=== PATIENT | male | born 1980 | race Caucasian/White ===

== ENCOUNTER 2017-03-09 12:07 | Inpatient (IN) | payer OTHER ==
[~2017-03-09] VITALS: Ht 195.6 cm; Wt 67.5 kg
[2017-03-09 12:15] VITALS: BP 150/97; PULSE 110; RESP 16; TEMP 97.8; O2SAT 97
[2017-03-09 12:36] LABS: AUTOMATED NEUTROPHIL # 5.7 TH/MM3 (1.8-7.7); BASOPHIL % 0.5 % (0.0-2.0); EOSINOPHIL # 0.1 TH/MM3 (0-0.4); HEMATOCRIT 44.3 % (39.0-51.0); HEMO FLAGS DIFF FINAL; LYMPH % 21.1 % (9.0-44.0); LYMPHOCYTE # 1.7 TH/MM3 (1.0-4.8); MEAN CELL VOLUME 91.1 FL (80.0-100.0); MEAN CORPUSCULAR HEMOGLOBIN 31.4 PG (27.0-34.0); MEAN CORPUSCULAR HGB CONC 34.4 % (32.0-36.0); MONO % 6.9 % (0.0-8.0); NEUT % 70.5 % (16.0-70.0); PLATELET COUNT 245 TH/MM3 (150-450); RED BLOOD COUNT 4.87 MIL/MM3 (4.50-5.90); RED CELL DISTRIBUTION WIDTH 12.5 % (11.6-17.2); WHITE BLOOD COUNT 8.1 TH/MM3 (4.0-11.0)
[2017-03-09 12:57] LABS: ALT (GPT) 45 U/L (12-78); ANION GAP 8 MEQ/L (5-15); AST (GOT) 19 U/L (15-37); BICARBONATE 26.3 MEQ/L (21.0-32.0); BLOOD UREA NITROGEN 14 MG/DL (7-18); CHLORIDE 104 MEQ/L (98-107); GLOMERULAR FILTRATION RATE 76 ML/MIN (>89); POTASSIUM 4.2 MEQ/L (3.5-5.1); SODIUM (NA) 138 MEQ/L (136-145)
[2017-03-09 12:59] LABS: ALKALINE PHOSPHATASE 72 U/L (45-117); TOTAL BILIRUBIN ADULT 0.4 MG/DL (0.2-1.0)
--- NOTE | 2017-03-09 13:54 | PD ---
HPI Chief Complaint: Psychiatric Symptoms Time Seen by Provider: 13:34 Travel History International Travel<30 days: No Contact w/Intl Traveler<30days: No Traveled to known affect area: No History of Present Illness HPI 36-year-old male that presents to the ED for evaluation of psychiatric illness. Patient was [place] acted by police after apparently he got in argument with his and he states that he wanted to end his life and the police was called and he was Georges acted for his unsafety. He denies any suicidal ideation to me. Per patient he said this mainly because of the argument that was transpiring. Per patient he has 2 kids and he has no desire to end his life. Per patient he has a history of hypertension takes lisinopril for it. He also takes Wellbutrin for depression. He denies ever being Georges acted before. He does drink on occasion. He denies any fevers chills or sweats. Denies any cuts. Denies any homicidal ideation. No substance abuse other than occasional alcohol. Denies hearing voices. No previous suicidal attempts per patient. Allergy to penicillin. [facility] Past Medical History Depression: Yes Hypertension: Yes Past Surgical History Ear Surgery: Yes (TUBES) Social History Alcohol Use: Yes (OCCASIONAL) Tobacco Use: No Substance Use: No Allergies-Medications (Allergen,Severity, Reaction): Coded Allergies: Penicillins (Verified Allergy, Unknown, 03/09/17) Review of Systems Except as stated in HPI: all other systems reviewed are Neg Physical Exam Narrative GENERAL: SKIN: Warm and dry. HEAD: Atraumatic. Normocephalic. EYES: Pupils equal and round 4 mm reactive to light and accommodation. No scleral icterus. No injection or drainage. ENT: No nasal bleeding or discharge. Mucous membranes pink and moist. Tongue is midline. No uvula deviation. NECK: Trachea midline. No JVD. CARDIOVASCULAR: Regular rate and rhythm. No murmurs, S3, S4. RESPIRATORY: No accessory muscle use. Clear to auscultation. Breath sounds equal bilaterally. GASTROINTESTINAL: Abdomen soft, non-tender, nondistended. Hepatic and splenic margins not palpable. MUSCULOSKELETAL: Extremities without clubbing, cyanosis, or edema. No obvious deformities. Full range of motion of the upper and lower extremities bilaterally. 2+ pulses bilaterally. NEUROLOGICAL: Awake and alert. No obvious cranial nerve deficits. Motor grossly within normal limits. Five out of 5 muscle strength in the arms and legs. Normal speech. PSYCHIATRIC: Appropriate mood and affect; insight and judgment normal. Data Data Last Documented VS Vital Signs Date Time Temp Pulse Resp B/P (MAP) Pulse Ox O2 Delivery O2 Flow Rate FiO2 03/09/17 12:15 97.8 110 16 150/97 (114) 97 Orders Orders Complete Blood Count With Diff (03/09/17 12:22) Comprehensive Metabolic Panel (03/09/17 12:22) Psych Screen (03/09/17 12:22) Diet Regular Basic (03/09/17 Lunch) Drug Screen, Random Urine (03/09/17 12:22) Labs Laboratory Tests Test 03/09/17 12:26 03/09/17 12:48 White Blood Count 8.1 TH/MM3 Red Blood Count 4.87 MIL/MM3 Hemoglobin 15.3 GM/DL Hematocrit 44.3 % Mean Corpuscular Volume 91.1 FL Mean Corpuscular Hemoglobin 31.4 PG Mean Corpuscular Hemoglobin Concent 34.4 % Red Cell Distribution Width 12.5 % Platelet Count 245 TH/MM3 Mean Platelet Volume 8.0 FL Neutrophils (%) (Auto) 70.5 % Lymphocytes (%) (Auto) 21.1 % Monocytes (%) (Auto) 6.9 % Eosinophils (%) (Auto) 1.0 % Basophils (%) (Auto) 0.5 % Neutrophils # (Auto) 5.7 TH/MM3 Lymphocytes # (Auto) 1.7 TH/MM3 Monocytes # (Auto) 0.6 TH/MM3 Eosinophils # (Auto) 0.1 TH/MM3 Basophils # (Auto) 0.0 TH/MM3 CBC Comment DIFF FINAL Differential Comment Blood Urea Nitrogen 14 MG/DL Creatinine 1.10 MG/DL Random Glucose 108 MG/DL Total Protein 8.3 GM/DL Albumin 4.4 GM/DL Calcium Level 8.7 MG/DL Alkaline Phosphatase 72 U/L Aspartate Amino Transf (AST/SGOT) 19 U/L Alanine Aminotransferase (ALT/SGPT) 45 U/L Total Bilirubin 0.4 MG/DL Sodium Level 138 MEQ/L Potassium Level 4.2 MEQ/L Chloride Level 104 MEQ/L Carbon Dioxide Level 26.3 MEQ/L Anion Gap 8 MEQ/L Estimat Glomerular Filtration Rate 76 ML/MIN Urine Opiates Screen NEG Urine Barbiturates Screen NEG Urine Amphetamines Screen NEG Urine Benzodiazepines Screen NEG Urine Cocaine Screen NEG Urine Cannabinoids Screen NEG MDM Medical Decision Making Medical Screen Exam Complete: Yes Emergency Medical Condition: Yes Medical Record Reviewed: Yes Interpretation(s) CBC & BMP Diagram 03/09/17 12:26 Total Protein 8.3 H, Albumin 4.4, Calcium Level 8.7, Alkaline Phosphatase 72, Aspartate Amino Transf (AST/SGOT) 19, Alanine Aminotransferase (ALT/SGPT) 45, Total Bilirubin 0.4 tox negative Differential Diagnosis Depression versus suicidal ideation versus anxiety versus adjustment disorder versus mood disorder versus bipolar disorder versus schizophrenia versus paranoid disorder versus psychosis versus substance abuse versus alcohol abuse versus alcohol induced psychosis versus homicidality addition versus cutting versus personality disorder Narrative Course 36-year-old male that presents to the ED for evaluation of what appears to be psych eval. Patient was properly examined the has no medical complaints. Labs were drawn. Patient will be medically clear. Okay to be seen by psych. Mental health screening was discussed with the patient. Diagnosis Primary Impression: Suicidal ideation Admitting Information Admitting Physician Requests: Observation Timi Lopez Mar 09, 2017 13:53
[2017-03-09 15:51] VITALS: BP 128/75; PULSE 70; RESP 16; TEMP 98.1; O2SAT 100
[2017-03-09] MEDS ORDERED: BUPR150XL PO (19:53)
[2017-03-09] MEDS ORDERED: LISI-515 PO (19:53)
[2017-03-09 20:18] VITALS: BP 136/74; PULSE 72; RESP 18
[2017-03-09] MEDS ORDERED: ACETAMINOPHEN 325 MG TAB PO PRN (22:00)
[2017-03-09] MEDS ORDERED: diphenhydrAMINE HCL 50 MG CAP - HS PRN PO (22:00)
[2017-03-09] MEDS ORDERED: ALUMINUM/MAGNESIUM/SIMETH 30 ML CUP PO PRN (22:00)
[2017-03-09] MEDS ORDERED: hydrOXYzine HCL 50 MG TAB PO PRN (22:00)
[2017-03-09] MEDS ORDERED: MAGNESIUM HYDROXIDE SUSP 30 ML CUP PO PRN (22:00)
[2017-03-09] MEDS ORDERED: diphenhydrAMINE HCL 50 MG/ML VIAL - HS PRN IM (22:00)
[2017-03-10 06:39] VITALS: BP 121/87; PULSE 67; RESP 20; TEMP 98.3
[2017-03-10] MEDS ORDERED: LISINOPRIL 20 MG TAB PO SCH (09:00)
[2017-03-10] MEDS ORDERED: buPROPion HCL 150 MG SUSTAINED RELEASE TAB PO SCH (09:00)
[2017-03-10 10:26] LABS: ANION GAP 9 MEQ/L (5-15); BICARBONATE 25.9 MEQ/L (21.0-32.0); BLOOD UREA NITROGEN 12 MG/DL (7-18); CHLORIDE 104 MEQ/L (98-107); GLOMERULAR FILTRATION RATE 87 ML/MIN (>89); SODIUM (NA) 139 MEQ/L (136-145)
[2017-03-10 10:30] LABS: HDL CHOLESTEROL 41.8 MG/DL (40.0-60.0); LDL CHOLESTEROL 124 MG/DL (0-99)
--- NOTE | 2017-03-10 11:35 | HHI.HP ---
Provisional Diagnosis Admission Date Mar 09, 2017 at 21:33 Sat[place] I. Adjustment disorder with mixed disturbances of emotion and conduct f 43.25 Certification of Person's Competence To Provide Express and Informed Consent I have personally examined Naeem Carbajal , a person being served at [facility] on, Mar 10, 2017 11:23. Express and informed consent means consent voluntarily given in writing, by a competent person, after sufficient explanation and disclosure of the subject matter involved to enable the person to make a knowing and willful decision without any element of force, fraud, deceit, duress, or other form of constraint or coercion. This person is 18 years of age or older, is not now known to be incompetent to consent to treatment with a guardian advocate, and does not have a health care surrogate or proxy currently making medical treatment decisions. I have found this person to be one of the following: [xxx Competent to provide express and informed consent, as defined above, for voluntary admission to this facility and is competent to provide express and informed consent for treatment. He/she has the consistent capacity to make well reasoned, willful, and knowing decisions concerning his or her medical or mental health treatment. The person fully and consistently understands the purpose of the admission for examination/placement and is fully capable of personally exercising all rights assured under [place] [] Incompetent to provide express and informed consent to voluntary admission, and this is incompetent to provide express and informed consent to treatment. The person must be transferred to involuntary status and a petition for a guardian advocate filed with the Circuit Court. [] Refusing to provide express and informed consent to voluntary admission but is competent to provide express and informed consent for treatment. The person must be discharged or transferred to involuntary status. Form shall be completed within 24 hours of a person's arrival at the receiving facility and filed in the clinical record of each person: 1. Admitted on a voluntary basis 2. Permitted to provide express and informed consent to his/her own treatment 3. Allowed to transfer from involuntary to voluntary status 4. Prior to permitting a person to consent to his or her own treatment after having been previously found incompetent to consent to treatment. History of Present Illness Capacity: Has Capacity HPI Patient is a 36-year-old white male who comes here under Georges act by the [place] [employer] dated 10-17 at 11:05 AM that document reviewed. Essentially states suicidal thoughts of killing himself with a firearm, history of depression currently prescribed Wellbutrin. Patient seen screened in the ED urine toxicology negative. At the present time patient sitting quietly in his room also present were nurse Stephanie and counselor Alivia. She is alert oriented calm and cooperative stating he has been under stress with relationship with his for the past week or so since they went with her sister and [id number] to [employer] in [place]. He states his got intoxicated to the point where she passed out was seen by the [place] staff and transported to a local emergency department where she was treated for the intoxication and then released. This is been somewhat of a contentious issue between them since then. Is also cause some problems earlier related to the use of alcohol. They've been for number of years have 6-year-old boy 8-year-old daughter. Patient works full-time. Patient states has had a prior contact with psychiatric services number of years ago when multiple family members close proximity to each other. He denies inpatient psychiatric stay. He denies any legal issues with drinking except he did get stopped after wetting a number of years ago though no DUI was discharged. He now denies suicidality homicidality voices or visions. Stated he related to her statement. Is able to contract was to do no harm. He has seen a counselor in the past continues a relationship that person wants to start counseling again with the intent of having a developmental marital counseling session. Patient denies any prior physical and or sexual abuse. Denies mental health issues in the family. Jose De Jesus Bunch has talked to patient's she feels safe with coming all has no fear of him doing something dangerous. They're firearm subtemporal away and locked. Patient had been on Wellbutrin in the past with some good results his been restarted on his by his PCP. At this time patient does not meet criteria for inpatient psychiatric hospitalization of the Georges act. Will lift Georges act allow patient to be discharged to himself. With Rx 1 month the schedule meds. He to make an appointment with his therapist. And then the follow-up appointment with a psychiatrist of their choice strong recommendation absolute sobriety. Review of Systems Constitutional: DENIES: Diaphoretic episodes, Fatigue, Fever, Weight gain, Weight loss, Chills, Dizziness, Change in appetite, Night Sweats Endocrine: DENIES: Heat/cold intolerance, Polydipsia, Polyuria, Polyphagia Eyes: DENIES: Blurred vision, Diplopia, Eye inflammation, Eye pain, Vision loss , Photosensitivity, Double Vision Ears, nose, mouth, throat: DENIES: Tinnitus, Hearing loss, Vertigo, Nasal discharge, Oral lesions, Throat pain, Hoarseness, Ear Pain, Running Nose, Epistaxis, Sinus Pain, Toothache, Odynophagia Respiratory: DENIES: Apneas, Cough, Snoring, Wheezing, Hemoptysis, Sputum production, Shortness of breath Cardiovascular: DENIES: Chest pain, Palpitations, Syncope, Dyspnea on Exertion , PND, Lower Extremity Edema, Orthopnea, Claudication Gastrointestinal: DENIES: Abdominal pain, Black stools, Bloody stools, Constipation, Diarrhea, Nausea, Vomiting, Difficulty Swallowing, Anorexia Genitourinary: DENIES: Sexual dysfunction, Urinary frequency, Urinary incontinence, Urgency, Hematuria, Dysuria, Nocturia, Penile Discharge, Testicular Pain, Testicular Swelling Musculoskeletal: DENIES: Joint pain, Muscle aches, Stiffness, Joint Swelling, Back pain, Neck pain Integumentary: DENIES: Abnormal pigmentation, Nail changes, Pruritus, Rash Hematologic/lymphatic: DENIES: Bruising, Lymphadenopathy Immunologic/allergic: DENIES: Eczema, Urticaria Neurologic: DENIES: Abnormal gait, Headache, Localized weakness, Paresthesias, Seizures, Speech Problems, Tremor, Poor Balance Psychiatric: DENIES: Anxiety, Confusion, Mood changes, Depression, Hallucinations, Agitation, Suicidal Ideation, Homicidal Ideation, Delusions Past Psych History Psychological trauma history Denies Violence risk - others (6 mos) Low Violence risk - self (6 mos) Denies suicidality at this time Substance Abuse History Drugs/Alcohol past 12 months Patient states occasional alcohol use denies other drug use Past Family Social History Coded Allergies: Penicillins (Verified Allergy, Unknown, 03/09/17) Past Medical History Patient medically cleared ED Reported Medications Bupropion HCl ER 24 HR (Wellbutrin Xl 24 HR) 150 Mg Tab, 150 MG PO DAILY for Control Depression, TAB 0 Refills 03/09/17 Lisinopril (Lisinopril) 20 Mg Tab, 20 MG PO DAILY, #30 TAB 0 Refills 03/09/17 Current Medications Medications (Trade) Dose Ordered Sig/Tyler Route Start Time Stop Time Status Last Admin (Atarax) 50 mg Q6H PRN PO 03/09/17 22:00 (Benadryl) 50 mg HS PRN PO 03/09/17 22:00 (Benadryl Inj) 50 mg HS PRN IM 03/09/17 22:00 (Tylenol) 650 mg Q4H PRN PO 03/09/17 22:00 (Milk Of Magnesia Liq) 30 ml DAILY PRN PO 03/09/17 22:00 (Mag-Al Plus Susp Liq) 30 ml Q6H PRN PO 03/09/17 22:00 (Prinivil) 20 mg DAILY PO 03/10/17 09:00 03/10/17 09:19 (Wellbutrin Sr) 150 mg DAILY PO 03/10/17 09:00 03/10/17 09:19 Family History Patient denies mental health history and family Social History Patient was his and 2 young children Patient's Strengths (min. 2) Patient verbal labile axis health care is cooperative Physical Exam Patient seen screened in ED exam reveals and agreed with. At the present time patient sitting quietly in his room he is in no apparent distress, he is in no respiratory distress, no complaints of abdominal pain. Patient moving all 4 extremities of difficulty ambulating without difficulty Vital Signs Vital Signs Date Time Temp Pulse Resp B/P (MAP) Pulse Ox O2 Delivery O2 Flow Rate FiO2 03/10/17 06:39 98.3 67 20 121/87 (98) 03/09/17 15:51 100 Room Air I/O 03/10/17 03/10/17 03/11/17 08:00 16:00 00:00 Intake Total 0 ml Balance 0 ml Lab Results Test 03/09/17 12:26 03/09/17 12:48 03/10/17 09:18 White Blood Count 8.1 TH/MM3 Red Blood Count 4.87 MIL/MM3 Hemoglobin 15.3 GM/DL Hematocrit 44.3 % Mean Corpuscular Volume 91.1 FL Mean Corpuscular Hemoglobin 31.4 PG Mean Corpuscular Hemoglobin Concent 34.4 % Red Cell Distribution Width 12.5 % Platelet Count 245 TH/MM3 Mean Platelet Volume 8.0 FL Neutrophils (%) (Auto) 70.5 % Lymphocytes (%) (Auto) 21.1 % Monocytes (%) (Auto) 6.9 % Eosinophils (%) (Auto) 1.0 % Basophils (%) (Auto) 0.5 % Neutrophils # (Auto) 5.7 TH/MM3 Lymphocytes # (Auto) 1.7 TH/MM3 Monocytes # (Auto) 0.6 TH/MM3 Eosinophils # (Auto) 0.1 TH/MM3 Basophils # (Auto) 0.0 TH/MM3 CBC Comment DIFF FINAL Differential Comment Blood Urea Nitrogen 14 MG/DL 12 MG/DL Creatinine 1.10 MG/DL 0.98 MG/DL Random Glucose 108 MG/DL 94 MG/DL Total Protein 8.3 GM/DL Albumin 4.4 GM/DL Calcium Level 8.7 MG/DL 9.1 MG/DL Alkaline Phosphatase 72 U/L Aspartate Amino Transf (AST/SGOT) 19 U/L Alanine Aminotransferase (ALT/SGPT) 45 U/L Total Bilirubin 0.4 MG/DL Sodium Level 138 MEQ/L 139 MEQ/L Potassium Level 4.2 MEQ/L 4.0 MEQ/L Chloride Level 104 MEQ/L 104 MEQ/L Carbon Dioxide Level 26.3 MEQ/L 25.9 MEQ/L Anion Gap 8 MEQ/L 9 MEQ/L Estimat Glomerular Filtration Rate 76 ML/MIN 87 ML/MIN Urine Opiates Screen NEG Urine Barbiturates Screen NEG Urine Amphetamines Screen NEG Urine Benzodiazepines Screen NEG Urine Cocaine Screen NEG Urine Cannabinoids Screen NEG Triglycerides Level 134 MG/DL Cholesterol Level 193 MG/DL LDL Cholesterol 124 MG/DL HDL Cholesterol 41.8 MG/DL Cholesterol/HDL Ratio 4.61 RATIO Mental Status Examination Alert oriented calm muscular white male appears stated age calm cooperative with me with good eye contact Appearance Clean and neat Speech: Unremarkable, Pressured Orientation: x3 Memory: Unremarkable Thought Process: Logical, Organized Thought Content: Unremarkable Language Fair Fund of Knowledge Fair Hallucination Type: None Attention and Concentration: Good Suicidal Ideation: No (patient denies, able contracted to no harm, the made vague statements to ) Previous Suicide Attempts: No Homicidal Ideation: No Previous Homicide Attempts: No Insight: Fair Judgment: Poor Affect: Other (good range and intensity) Mood: Euthymic (mildly dysphoric) Motor Activity: Normal gait Assessment & Plan Problem List: (1) Adjustment disorder with mixed disturbance of emotions and conduct ICD Codes: F43.25 - Adjustment disorder with mixed disturbance of emotions and conduct Assessment & Plan Estimated LOS: days patient remains mildly depressed though denies suicidality homicidality voices or visions. Is able to contracted to no harm. At this time patient does not meet Georges criteria will lift Georges act patient to be discharged from self with Rx of lisinopril and Wellbutrin 1 month to follow-up with his personal therapist and to arrange for psychiatric follow-up Discharge Planning Patient to be discharge follow-up outpatient Request HC Surrog/Guard Advoc?: No Andrés Espinosa MD Mar 10, 2017 11:35
[2017-03-10] MEDS ORDERED: BUPR150CR PO (11:38)
[2017-03-10] MEDS ORDERED: LISI-515 PO (11:38)
--- NOTE | 2017-03-10 11:42 | HHI.DS ---
Psychiatry Discharge Summary Inpatient Psychiatric care?: Yes Advance Directive: Yes Mental Health AdvanceDirective: No Health Care Proxy: No Admission Admission Date Mar 09, 2017 at 21:33 Admission Diagnosis: (1) Adjustment disorder with mixed disturbance of emotions and conduct ICD Code: F43.25 - Adjustment disorder with mixed disturbance of emotions and conduct Brief History Patient is a 36-year-old white male who comes here under Georges act by the [place] [employer] dated 03-24 at 11:05 AM that document reviewed. Essentially states suicidal thoughts of killing himself with a firearm, history of depression currently prescribed Wellbutrin. Patient seen screened in the ED urine toxicology negative. At the present time patient sitting quietly in his room also present were nurse Stephanie and counselor Alivia. She is alert oriented calm and cooperative stating he has been under stress with relationship with his for the past week or so since they went with her sister and [id number] to [employer] in [place]. He states his got intoxicated to the point where she passed out was seen by the [place] staff and transported to a local emergency department where she was treated for the intoxication and then released. This is been somewhat of a contentious issue between them since then. Is also cause some problems earlier related to the use of alcohol. They've been for number of years have 6-year-old boy 8-year-old daughter. Patient works full-time. Patient states has had a prior contact with psychiatric services number of years ago when multiple family members close proximity to each other. He denies inpatient psychiatric stay. He denies any legal issues with drinking except he did get stopped after wetting a number of years ago though no DUI was discharged. He now denies suicidality homicidality voices or visions. Stated he related to her statement. Is able to contract was to do no harm. He has seen a counselor in the past continues a relationship that person wants to start counseling again with the intent of having a developmental marital counseling session. Patient denies any prior physical and or sexual abuse. Denies mental health issues in the family. Jose De Jesus Bunch has talked to patient's she feels safe with coming all has no fear of him doing something dangerous. They're firearm subtemporal away and locked. Patient had been on Wellbutrin in the past with some good results his been restarted on his by his PCP. At this time patient does not meet criteria for inpatient psychiatric hospitalization of the Georges act. Will lift Georges act allow patient to be discharged to himself. With Rx 1 month the schedule meds. He to make an appointment with his therapist. And then the follow-up appointment with a psychiatrist of their choice strong recommendation absolute sobriety. Tobacco Use In Past 30 Days: No Tobacco Past 30 Days Alcohol Use: Monthly or Less Hospital Course Please see above note dictated under brief history. Patient does not meet criteria for inpatient psychiatric hospitalization at this time. A new his schedule medications of Wellbutrin and lisinopril. Patient to follow-up with his individual counseling and they to make appointment with psychiatry Results Blood Pressure 121 / 87 Vital Signs Date Time Temp Pulse Resp B/P (MAP) Pulse Ox O2 Delivery O2 Flow Rate FiO2 03/10/17 06:39 98.3 67 20 121/87 (98) 03/09/17 15:51 100 Room Air Laboratory Tests Test 03/09/17 12:26 03/09/17 12:48 03/10/17 09:18 Neutrophils (%) (Auto) 70.5 % (16.0-70.0) Random Glucose 108 MG/DL (74-106) Total Protein 8.3 GM/DL (6.4-8.2) Estimat Glomerular Filtration Rate 76 ML/MIN (>89) 87 ML/MIN (>89) LDL Cholesterol 124 MG/DL (0-99) Laboratory Results Test 03/10/17 09:18 Cholesterol Level 193 MG/DL (120-200) HDL Cholesterol 41.8 MG/DL (40.0-60.0) LDL Cholesterol 124 MG/DL (0-99) Triglycerides Level 134 MG/DL (42-150) Summary of Procedures None done Pending results at discharge: No Medications # of Antipsychotic meds at D/C: 0 Approp Antipsych med options 1 - Minimum of three failed multiple trials of monotherapy. 2 - Documented plan to taper to monotherapy due to previous use of multiple meds OR cross-taper in progress at D/C. 3 - Documentation of augmentation of Clozapine. 4 - Justification other than those listed in allowable values 1-3, document here : Discharge Discharge Date: Mar 10, 2017 Discharge Diagnosis: (1) Adjustment disorder with mixed disturbance of emotions and conduct Diagnosis: Principal ICD Code: F43.25 - Adjustment disorder with mixed disturbance of emotions and conduct Mental Status Exam at Disch Alert oriented tall muscular white male calm cooperative. He is normoactive. He is euthymic, mildly dysphoric with good range intensity was affect. Speech rate and rhythm are within normal limits though no formal thought disorders. No auditory or visual hallucinations. No delusions. Insight and judgment is fair. Cognition grossly intact Pt Condition on Discharge: Fair Discharge Disposition: Discharge Home Discharge Instructions Diet Instructions: As Tolerated, No Restrictions Activities you can perform: Regular-No Restrictions Scheduled Appointment: Private Psychiatrist Discharge Time > 30 minutes Discharge/Advance Care Plan Health Problems: (1) Adjustment disorder with mixed disturbance of emotions and conduct Goals to promote your health * To prevent worsening of your condition and complications * To maintain your health at the optimal level Directions to meet your goals Take your medications as prescribed Follow your dietary instruction Follow activity as directed Keep your appointments as scheduled Take your immunizations and boosters as scheduled If your symptoms worsen call your PCP, if no PCP go to Urgent Care Center or Emergency Room For 29/12 questions related to your inpatient stay or results of tests pending at discharge, please contact Dr. Andrés Espinosa at Smoking is Dangerous to Your Health. Avoid second hand smoking Andrés Espinosa MD Mar 10, 2017 11:42
[2017-03-10 16:37] LABS: HEMOGLOBIN A1a 1.1 %; HEMOGLOBIN A1b 1.4 %; HEMOGLOBIN Ao 85.7 %; HEMOGLOBIN P3 3.6 %
[2017-03-11] MEDS ORDERED: LISINOPRIL 20 MG TAB PO SCH (09:00)
[2017-03-11] MEDS ORDERED: buPROPion HCL 150 MG SUSTAINED RELEASE TAB PO SCH (09:00)
== END 2017-03-10 12:30 | disposition home or self-care (01) | DRG 882 ==
LOC: NEPJ 12:07 → NEDA 21:33 → H260 21:50
PROVIDERS: ADMIT Psychiatry & Neurology Psychiatry; ATTEND Psychiatry & Neurology Psychiatry
DX: F43.25 Adjustment disorder with mixed disturbance of emotions and conduct (principal); R45.851 Suicidal ideations; F32.9 Major depressive disorder, single episode, unspecified
CPT/HCPCS: 80048; 80053; 80061; 80307; 83036; 85025